=== PATIENT | female | born 1955 | race Hispanic/Latino ===

== ENCOUNTER 2019-10-18 17:55 | Emergency (ER) | payer OTHER, BC ==
--- NOTE | 2019-10-23 14:44 | ER ---
Nurse's Notes [facility] – [place], [place] Name: Marainela Coles Age: 64 yrs Sex: Female : 1955 Arrival Date: 10/18/2019 Time: 18:02 Bed 14 Private MD: Diagnosis: Mayen's palsy Presentation: 10/17 18:25 Chief complaint: Patient states: Left eye irritation, not closing well since last ll1 night. Left upper lip feels numb and not moving well today. No neuro deficits. Gait steady. Grasps equal. Coronavirus screen: Proceed with normal triage. Patient denies a cough. Patient denies shortness of breath or difficulty breathing. Patient denies measured and/or subjective temperature greater than 100.4F prior to today's visit. Patient denies travel on a cruise ship or to a country the [facility] currently lists as an affected area. Patient denies contact with known and/or suspected case of COVID-19. Ebola Screen: Patient denies travel to an Ebola-affected area in the 21 days before illness onset. Initial Sepsis Screen: Does the patient meet any 2 criteria? No. Patient's initial sepsis screen is negative. Does the patient have a suspected source of infection? No. Patient's initial sepsis screen is negative. Risk Assessment: Do you want to hurt yourself or someone else? Patient reports no desire to harm self or others. Onset of symptoms was October 17, 2019. 18:25 Method Of Arrival: Ambulatory ll1 18:25 Acuity: SIENNA 4 ll1 Triage Assessment: 19:45 General: Appears in no apparent distress. uncomfortable, Behavior is calm, cooperative, vc appropriate for age. Pain: Denies pain. Historical: - Allergies: 18:28 PENICILLINS; ll1 18:28 Codeine; ll1 - PMHx: 18:28 Diabetes - NIDDM; Hypertension; ll1 - PSHx: 18:28 None; ll1 - Immunization history:: Flu vaccine is up to date. - Social history:: Patient/guardian denies using alcohol, street drugs, tobacco products, Patient/guardian denies using The patient lives with family, Smoking status: Patient denies any tobacco usage or history of. - Family history:: not pertinent. Screenin:45 Abuse screen: Denies threats or abuse. Nutritional screening: No deficits noted. vc Tuberculosis screening: No symptoms or risk factors identified. Fall Risk None identified. Assessment: 19:45 General: Appears in no apparent distress. uncomfortable, Behavior is calm, cooperative, vc appropriate for age. Pain: Denies pain. Neuro: Level of Consciousness is awake, alert, obeys commands, Oriented to person, place, time, situation, Appropriate for age Medical Staff Services Coordinator are equal bilaterally Moves all extremities. Facial droop on left, Reports numbness in mouth. Cardiovascular: Capillary refill < 3 seconds Patient's skin is warm and dry. Respiratory: Airway is patent Respiratory effort is even, unlabored, Respiratory pattern is regular, symmetrical. GI: No signs and/or symptoms were reported involving the gastrointestinal system. : No signs and/or symptoms were reported regarding the genitourinary system. EENT: right eye droop. Derm: Skin is intact, is healthy with good turgor. Vital Signs: 18:25 BP 174 / 78; Pulse 83; Resp 17; Temp 98.4; Pulse Ox 99% ; Weight 58.51 kg; Height 5 ft. ll1 2 in. (157.48 cm); Pain 0/10; 18:25 Body Mass Index 23.59 (58.51 kg, 157.48 cm) ll1 ED Course: 18:02 Patient arrived in ED. mr 18:27 Triage completed. ll1 18:28 Arm band placed on Patient notified of wait time. ll1 19:45 Patient has correct armband on for positive identification. Bed in low position. vc 20:04 Patsy Elena MD is Attending Physician. ma2 20:15 No provider procedures requiring assistance completed. Patient did not have IV access vc during this emergency room visit. 20:18 Shayna Lewis, LEANA is Primary Nurse. vc Administered Medications: No medications were administered Outcome: 20:08 Discharge ordered by . ma2 20:15 Discharged to home ambulatory. vc 20:15 Condition: good 20:15 Discharge instructions given to patient, Instructed on discharge instructions, follow up and referral plans. medication usage, Demonstrated understanding of instructions, follow-up care, medications, Prescriptions given X 3. 20:19 Patient left the ED. vc Signatures: Kae Driscoll mr Patsy Elena MD MD ma2 Shayna Lewis RN RN vc Brent, Lynsay, RN RN ll1
--- NOTE | 2019-10-23 14:44 | EDPHYS ---
Physician Documentation [facility] Name: Marianela Coles Age: 64 yrs Sex: Female : 1955 Arrival Date: 10/18/2019 Time: 18:02 Bed 14 Private MD: ED Physician Patsy Elena HPI: 10/17 20:04 This 64 yrs old Female presents to ER via Ambulatory with complaints of Eye ma2 Problem, Numbness Of Lips. 20:04 Onset: The symptoms/episode began/occurred gradually, 1 hour(s) ago. Associated signs ma2 and symptoms: Pertinent negatives: chills, dizziness, headache. Severity of symptoms: At their worst the symptoms were very mild in the emergency department the symptoms are unchanged. The patient has not experienced similar symptoms in the past. left sided facial palsy. Historical: - Allergies: 18:28 PENICILLINS; ll1 18:28 Codeine; ll1 - PMHx: 18:28 Diabetes - NIDDM; Hypertension; ll1 - PSHx: 18:28 None; ll1 - Immunization history:: Flu vaccine is up to date. - Social history:: Patient/guardian denies using alcohol, street drugs, tobacco products, Patient/guardian denies using The patient lives with family, Smoking status: Patient denies any tobacco usage or history of. - Family history:: not pertinent. ROS: 20:04 Constitutional: Negative for fever, chills, and weight loss. ma2 20:04 All other systems are negative. Exam: 20:04 Visual Acuity: Visual acuity is within normal limits. ma2 20:04 Constitutional: This is a well developed, well nourished patient who is awake, alert, and in no acute distress. Head/Face: left sided facial weakness, lower motor neuron, uncluding forehead, Normocephalic, atraumatic. Eyes: Pupils equal round and reactive to light, extra-ocular motions intact. Lids and lashes normal. Conjunctiva and sclera are non-icteric and not injected. Cornea within normal limits. Periorbital areas with no swelling, redness, or edema. ENT: Nares patent. No nasal discharge, no septal abnormalities noted. Tympanic membranes are normal and external auditory canals are clear. Oropharynx with no redness, swelling, or masses, exudates, or evidence of obstruction, uvula midline. Mucous membranes moist. Neck: Trachea midline, no thyromegaly or masses palpated, and no cervical lymphadenopathy. Supple, full range of motion without nuchal rigidity, or vertebral point tenderness. No Meningismus. Chest/axilla: Normal chest wall appearance and motion. Nontender with no deformity. No lesions are appreciated. Cardiovascular: Regular rate and rhythm with a normal S1 and S2. No gallops, murmurs, or rubs. Normal PMI, no JVD. No pulse deficits. Respiratory: Lungs have equal breath sounds bilaterally, clear to auscultation and percussion. No rales, rhonchi or wheezes noted. No increased work of breathing, no retractions or nasal flaring. Abdomen/GI: Soft, non-tender, with normal bowel sounds. No distension or tympany. No guarding or rebound. No evidence of tenderness throughout. Back: No spinal tenderness. No costovertebral tenderness. Full range of motion. Skin: Warm, dry with normal turgor. Normal color with no rashes, no lesions, and no evidence of cellulitis. MS/ Extremity: Pulses equal, no cyanosis. Neurovascular intact. Full, normal range of motion. Neuro: Awake and alert, GCS 15, oriented to person, place, time, and situation. Cranial nerves II-XII grossly intact. Motor strength 5/5 in all extremities. Sensory grossly intact. Cerebellar exam normal. Normal gait. Vital Signs: 18:25 BP 174 / 78; Pulse 83; Resp 17; Temp 98.4; Pulse Ox 99% ; Weight 58.51 kg; Height 5 ft. ll1 2 in. (157.48 cm); Pain 0/10; 18:25 Body Mass Index 23.59 (58.51 kg, 157.48 cm) ll1 MDM: 20:04 Patient medically screened. ma2 20:04 Differential diagnosis: Acute iritis of bells palsy. Data reviewed: vital signs, nurses ma2 notes. Counseling: I had a detailed discussion with the patient and/or guardian regarding: the historical points, exam findings, and any diagnostic results supporting the discharge/admit diagnosis, the presence of at least one elevated blood pressure reading (>120/80) during this emergency department visit, the need for outpatient follow up. Response to treatment: There is no appreciated change of the patient's symptoms at this time. Administered Medications: No medications were administered Disposition: 10/18/19 20:08 Discharged to Home. Impression: Mayen's palsy. - Condition is Stable. - Discharge Instructions: Mayen Palsy, Adult. - Prescriptions for Tears Naturale Forte - take 2 drop by OTIC route 6 times per day for 10 days; 2 box. Acyclovir 400 mg Oral Tablet - take 1 tablet by ORAL route every 8 hours; 30 tablet. Medrol (Tiago) 4 mg Oral Tablets, Dose Pack - take 1 tablet by ORAL route as directed - follow package instructions; 1 packet. - Medication Reconciliation Form, Thank You Letter, Antibiotic Education, Prescription Opioid Use form. - Follow up: Private Physician; When: Tomorrow; Reason: If symptoms return, Continuance of care. Signatures: Patsy Elena MD MD ma2 Shayna Lewis RN RN Samira Guzman RN RN ll1 Corrections: (The following items were deleted from the chart) 20:19 20:08 10/18/2019 20:08 Discharged to Home. Impression: Mayen's palsy. Condition is vc Stable. Forms are Medication Reconciliation Form, Thank You Letter, Antibiotic Education, Prescription Opioid Use. Follow up: Private Physician; When: Tomorrow; Reason: If symptoms return, Continuance of care. [email or web address]
== END 2019-10-18 20:19 | disposition home or self-care (01) ==
LOC: ER 17:55
DX: G51.0 Bell's palsy (principal); I10 Essential (primary) hypertension; Z88.0 Allergy status to penicillin; Z88.5 Allergy status to narcotic agent
CPT/HCPCS: 99282

== ENCOUNTER 2025-02-19 07:52 | Inpatient (IN) | payer OTHER, BC ==
[2025-02-19] MEDS ORDERED: NA CHLORIDE 0.9% 500 ML ONE (08:12)
[2025-02-19 08:29] LABS: Absolute Lymphocytes (CBC) 1.7 K/uL (0.7-4.9); Hematocrit 30.1 % (36.0-45.0); Hemoglobin 9.8 g/dL (12.0-15.0); MCH 29.2 pg (27.0-35.0); MCHC 32.6 g/dL (32.0-36.0); MCV 89.4 fL (80-100); MPV 8.4 fL (7.6-11.3); Nucleated RBC Absolute Count 0.0 (0-0); Nucleated Red Blood Cells % 0.1 % (0-0); RBC Red Blood Cell Count 3.36 M/uL (3.86-4.86); White Blood Count 5.70 thou/uL (4.3-10.9)
[2025-02-19 08:36] LABS: PT Prothrombin Time 15.1 SECONDS (10-13.0); Protime INR 1.35
[2025-02-19 08:45] LABS: Sqamous Epithelial <5 /HPF (None Seen); Urine Culture Reflex Order NOT NEEDED; Urine Microscopic Reflex YN ORDER UMIC; Urine WBC Clump Rare /HPF (None Seen)
[2025-02-19 08:50] LABS: ALT/SGPT 29.0 U/L (13-56); AST/SGOT 28.0 U/L (15-37); Albumin 3.1 g/dL (3.4-5.0); Albumin/Globulin Ratio 0.8 (1.1-1.8); Alkaline Phosphatase 116.0 U/L (45-117); Anion Gap 8.5 mEq/L (5.0-15.0); BUN Blood Urea Nitrogen 33.0 mg/dL (7-18); Bilirubin Indirect, Calculated 0.3 mg/dL (0.2-0.8); Globulin 4.1 g/dL (2.3-3.5); Glucose Level 160.0 mg/dL (74-106); Lipase 85.0 U/L (13-75); Magnesium 1.7 mg/dL (1.6-2.4); NT PRO-BNP 47.0 pg/mL (<125); Potassium 4.5 mEq/L (3.5-5.1); Troponin High Sensitivity 8.2 pg/mL (<58.9)
[2025-02-19 09:10] LABS: White Blood Cell Scan OK (OK)
[2025-02-19 09:11] LABS: Blood Morphology Comment NOT SEEN (NOT SEEN)
--- NOTE | 2025-02-19 09:27 | RAD REPORT ---
EXAMINATION: Abdomen Pelvis Wo Contrast CLINICAL INDICATION: Female, 69 years old.ABD PAIN TECHNIQUE: CTA abdomen and pelvis was performed, before and after the administration of IV contrast, as per department protocol. MIPS were created. Axial, sagittal and coronal reconstructions were obtained. One or more of the following dose reduction techniques were used: Automated exposure contro l, adjustment of the mA and/or kV according to patient size, and/or iterative reconstruction. Unless otherwise specified, incidental findings do not require dedicated imaging follow-up. [id number]. COMPARISON: MRI 06/23/2024 FINDINGS: LOWER CHEST: No acute process identified.No significant pericardial effusion. Mitral annular calcific ations.Lower esophageal varices noted. UPPER GI: Probable gastric varices. LIVER: Nodular liver contour. Dilated portal vein. GALLBLADDER/BILE DUCTS: Cholelithiasis without CT evidence of acute cholecystitis.? PANCREAS: No mass, ductal dilation, or rashid-pancreatic fluid. SPLEEN: Unremarkable. ADRENALS: No adrenal masses. KIDNEYS AND URETERS: No hydronephrosis.10 mm right upper pole renal lesion demonstrates enhancement a nd is suspicious for a solid neoplasm.No renal calculi.Renal cysts also present. ABDOMINAL AORTA AND OTHER VESSELS: Moderate atherosclerotic changes without aortic aneurysm. PERITONEUM: No abnormal free fluid. No free air. LYMPH NODES: No pathologic lymphadenopathy. ABDOMINAL WALL: Unremarkable SMALL BOWEL/COLON: Small bowel has normal course and caliber. No colonic wall thickening or pericolon ic inflammatory changes.Normal appendix. URINARY BLADDER: Underdistended but grossly unremarkable. REPRODUCTIVE ORGANS: No pathologic process. MUSCULOSKELETAL: Remote appearing superior endplate deformities at L3 and L4. ADDITIONAL FINDINGS: None. IMPRESSION: No evidence of active gastrointestinal bleeding. Cirrhotic liver morphology with esophageal and gastr ic varices. Enhancing 10 mm right upper pole renal lesion remains suspicious for neoplasm. This is not significan tly changed in size since 06/23/2024.
--- NOTE | 2025-02-19 09:44 | ER ---
Nurse's Notes [facility] Name: Marianela Coles Age: 69 yrs Sex: Female : 1955 Arrival Date: 02/19/2025 Time: 07:52 Bed 8 Private MD: Diagnosis: Upper GI bleed, esophageal variceal bleed, abdominal pain, liver cirrhosis Presentation: 02/19 08:15 Chief complaint: Patient states: N/V started this morning, vomiting bright, also had af3 dark stools this morning. 08:15 Coronavirus screen: At this time, the client does not indicate any symptoms associated af3 with coronavirus-19. Ebola Screen: No symptoms or risks identified at this time. Initial Sepsis Screen: Does the patient meet any 2 criteria? No. Patient's initial sepsis screen is negative. Does the patient have a suspected source of infection? No. Patient's initial sepsis screen is negative. Risk Assessment: Do you want to hurt yourself or someone else? Patient reports no desire to harm self or others. Onset of symptoms was February 19, 2025. 08:15 Method Of Arrival: Ambulatory af3 08:15 Acuity: SIENNA 3 af3 Triage Assessment: 08:23 General: Appears in no apparent distress. comfortable, well groomed, well developed, af3 Behavior is calm, cooperative, appropriate for age. Pain: Denies pain. Neuro: Level of Consciousness is awake, alert, obeys commands, Oriented to person, place, time, situation, Appropriate for age. Cardiovascular: Patient's skin is warm and dry. Respiratory: Airway is patent Respiratory effort is even, unlabored, Respiratory pattern is regular, symmetrical. GI: Reports nausea, vomiting. Historical: - Allergies: 08:23 Codeine; af3 08:23 PENICILLINS; af3 - PMHx: 08:23 Diabetes - NIDDM; Hypertension; af3 - Immunization history:: Adult Immunizations unknown. - Infectious Disease History:: Denies. - Social history:: Smoking status: Patient denies any tobacco usage or history of. Screenin:26 [facility] ED Fall Risk Assessment (Adult) History of falling in the last 3 months, af3 including since admission No falls in past 3 months (0 pts) Confusion or Disorientation No (0 pts) Intoxicated or Sedated No (0 pts) Impaired Gait No (0 pts) Mobility Assist Device Used No (0 pt) Altered Elimination No (0 pt) Score/Fall Risk Level 0 - 2 = Low Risk Oriented to surroundings, Maintained a safe environment, Educated pt \T\ family on fall prevention, incl call for assistance when getting out of bed. Abuse screen: Denies threats or abuse. Denies injuries from another. Nutritional screening: No deficits noted. Tuberculosis screening: No symptoms or risk factors identified. Assessment: 08:26 General: see triage assessment. af3 09:32 Reassessment: Patient appears in no apparent distress at this time. No changes from af3 previously documented assessment. Patient and/or family updated on plan of care and expected duration. Pain level reassessed. Patient is alert, oriented x 3, equal unlabored respirations, skin warm/dry/pink. 10:25 Reassessment: actively vomiting, dark color, physician notified . ap3 Vital Signs: 08:15 BP 134 / 61; Pulse 98; Resp 18; Temp 98; Pulse Ox 99% on R/A; Weight 58.97 kg; Height 5 af3 ft. 2 in. ; 08:59 BP 118 / 59; Pulse 87; Resp 17; Pulse Ox 100% on R/A; ap3 09:32 BP 119 / 50; Pulse 86; Resp 18; Pulse Ox 100% on R/A; af3 10:38 BP 121 / 46; Pulse 87; Resp 18; Pulse Ox 100% on R/A; af3 08:15 Body Mass Index 23.78 (58.97 kg, 157.48 cm) af3 ED Course: 07:56 Patient arrived in ED. cj3 07:57 Elias Myers MD is Attending Physician. sp3 08:12 Client placed on continuous cardiac and pulse oximetry monitoring. NIBP monitoring ap3 applied. developmental writing instructor on. Pulse ox on. NIBP on. 08:21 Lucretia Manriquez RN is Primary Nurse. af3 08:23 Triage completed. af3 08:23 Arm band placed on. af3 08:26 Patient has correct armband on for positive identification. Bed in low position. Call af3 light in reach. Provided Education on: call light use . 08:26 No provider procedures requiring assistance completed. Inserted saline lock: 20 gauge af3 in right antecubital area, using aseptic technique. Blood collected. Flushed with 10 mL NS. 08:32 EKG done, by ED staff, reviewed by Elias Myers MD. ap3 08:45 Abdomen Angio In Process Unspecified. EDMS 08:45 Pelvis Angio In Process Unspecified. EDMS 08:45 Abdomen In Process Unspecified. EDMS 09:00 Inserted saline lock: 20 gauge in left antecubital area, using aseptic technique. af3 Flushed with 10 mL NS. 09:43 Lawrence Winter MD is Hospitalizing Provider. sp3 11:40 Patient admitted, IV remains in place. ss Administered Medications: 08:34 Drug: NS 0.9% IV 500 ml IV at bolus once; to be given as a bolus over 30 minutes Route: af3 IV; Rate: bolus; Site: right antecubital; 09:45 Follow up: Response: No adverse reaction; IV Status: Completed infusion; IV Intake: af3 500ml 10:23 Drug: Rocephin IV 1 grams IV at calculated rate once; Given slow IV push per pharmacy af3 instructions Route: IV; Rate: calculated rate; Site: right antecubital; 10:24 Drug: Pantoprazole IVP 80 mg IVP once Route: IVP; Site: right antecubital; af3 10:24 Drug: Octreotide IV 50 mcg IV at bolus once Route: IV; Rate: bolus; Site: left af3 antecubital; 10:36 Drug: Ondansetron IVP 4 mg IVP once; over 2 minutes Route: IVP; Site: left antecubital; ap3 Medication: 08:26 VIS not applicable for this client. af3 Intake: 09:45 IV: 500ml; Total: 500ml. af3 Outcome: 09:44 Decision to Hospitalize by Provider. sp3 11:40 Admitted to Tele accompanied by tech, via wheelchair, room 413, 11:40 Condition: good 11:40 Instructed on the need for admit, Demonstrated understanding of instructions, 11:41 Patient left the ED. ss Signatures: Dispatcher [employer] EDLuisa Mooney RN RN ss Prokisch, Amanda, RN RN [email or web address] Elias Myers MD MD sp3 Lucretia Manriquez RN RN af3 Staci Del Rosario cj3 Corrections: (The following items were deleted from the chart) 09:03 08:59 BP 116 / 36; Pulse 87bpm; Resp 17bpm; Pulse Ox 100% RA; ap3 ap3
--- NOTE | 2025-02-19 09:44 | EDPHYS ---
Physician Documentation [facility] Name: Marianela Coles Age: 69 yrs Sex: Female : 1955 Arrival Date: 02/19/2025 Time: 07:52 Bed 8 Private MD: ED Physician Elias Myers HPI: 02/19 08:18 This 69 yrs old Female presents to ER via Unassigned with complaints of sp3 Nausea, Vomiting - BLOOD. 08:19 69-year-old female with history of liver cirrhosis from prior alcoholism, significant sp3 GI bleed in November 2024 requiring transfer, hypertension presents to the ED with chief complaint vomiting blood this morning and dark stools over the last several days. Patient 1 episode of emesis this morning to which she said she had bright red blood mixed in. She is not on any antiplatelet agents or anticoagulants. She denies ongoing vomiting. She also denies headache, neck pain, chest pain, shortness of breath, abdominal pain, syncope, bleeding elsewhere, or any other signs or symptoms on ROS at this time. Her last alcoholic beverage was in November of this year.. Historical: - Allergies: 08:23 Codeine; af3 08:23 PENICILLINS; af3 - PMHx: 08:23 Diabetes - NIDDM; Hypertension; af3 - Immunization history:: Adult Immunizations unknown. - Infectious Disease History:: Denies. - Social history:: Smoking status: Patient denies any tobacco usage or history of. ROS: 08:20 Constitutional: Negative for fever, chills, and weight loss, Eyes: Negative for injury, sp3 pain, redness, and discharge, Neck: Negative for injury, pain, and swelling, Cardiovascular: Negative for chest pain, palpitations, and edema, Respiratory: Negative for shortness of breath, cough, wheezing, and pleuritic chest pain, Back: Negative for injury and pain, MS/Extremity: Negative for injury and deformity, Skin: Negative for injury, rash, and discoloration, Neuro: Negative for headache, weakness, numbness, tingling, and seizure, Psych: Negative for depression, anxiety, suicide ideation, homicidal ideation, and hallucinations, Allergy/Immunology: Negative for hives, rash, and allergies, Endocrine: Negative for neck swelling, polydipsia, polyuria, polyphagia, and marked weight changes, 08:20 All other systems are negative, Exam: 08:20 Constitutional: This is a well developed, well nourished patient who is awake, alert, sp3 and in no acute distress. Head/Face: Normocephalic, atraumatic. Eyes: Pupils equal round and reactive to light, extra-ocular motions intact. Lids and lashes normal. Conjunctiva and sclera are non-icteric and not injected. Cornea within normal limits. Periorbital areas with no swelling, redness, or edema. Neck: Trachea midline, no thyromegaly or masses palpated, and no cervical lymphadenopathy. Supple, full range of motion without nuchal rigidity, or vertebral point tenderness. No Meningismus. Chest/axilla: Normal chest wall appearance and motion. Nontender with no deformity. No lesions are appreciated. Cardiovascular: Regular rate and rhythm with a normal S1 and S2. No gallops, murmurs, or rubs. Normal PMI, no JVD. No pulse deficits. Respiratory: Lungs have equal breath sounds bilaterally, clear to auscultation and percussion. No rales, rhonchi or wheezes noted. No increased work of breathing, no retractions or nasal flaring. Abdomen/GI: Soft, non-tender, with normal bowel sounds. No distension or tympany. No guarding or rebound. No evidence of tenderness throughout. Back: No spinal tenderness. No costovertebral tenderness. Full range of motion. Skin: Warm, dry with normal turgor. Normal color with no rashes, no lesions, and no evidence of cellulitis. MS/ Extremity: Pulses equal, no cyanosis. Neurovascular intact. Full, normal range of motion. Neuro: Awake and alert, GCS 15, oriented to person, place, time, and situation. Cranial nerves II-XII grossly intact. Motor strength 5/5 in all extremities. Sensory grossly intact. Cerebellar exam normal. Normal gait. Psych: Awake, alert, with orientation to person, place and time. Behavior, mood, and affect are within normal limits. 08:32 ECG was reviewed by the Attending Physician. EKG demonstrates normal sinus rhythm at 90 sp3 bpm with normal intervals, normal QRS, normal axis, normal ST/T-segment's with isolated lead T wave peaking in V2 however no other leads noted. Vital Signs: 08:15 BP 134 / 61; Pulse 98; Resp 18; Temp 98; Pulse Ox 99% on R/A; Weight 58.97 kg; Height 5 af3 ft. 2 in. ; 08:59 BP 118 / 59; Pulse 87; Resp 17; Pulse Ox 100% on R/A; ap3 09:32 BP 119 / 50; Pulse 86; Resp 18; Pulse Ox 100% on R/A; af3 10:38 BP 121 / 46; Pulse 87; Resp 18; Pulse Ox 100% on R/A; af3 08:15 Body Mass Index 23.78 (58.97 kg, 157.48 cm) af3 MDM: 08:03 Medical Screening Exam initiated sp3 08:21 Data reviewed: vital signs, nurses notes, old medical records, lab test result(s), EKG, sp3 radiologic studies. ED course: 69-year-old female with history of GI bleed now with recurrent bloody vomiting and melena. Differential diagnosis includes recurrent GI bleed, anemia of other etiology, dehydration, electrolyte abnormality, liver failure, among others. Workup will include general labs including coagulation profile, lactate, type and screen, hepatic profile, CT scan of the abdomen pelvis with IV contrast and treatment will be with IV fluids initially while workup is pending. Further interventions as indicated.. 09:33 ED course: Patient with variceal sequela on CT. Hemoglobin 9.8. Will go ahead and start sp3 Protonix and octreotide in the event this is a variceal bleed. GI paged for consultation for disposition assistance.. 02/19 08:10 Order name: Basic Metabolic Panel; Complete Time: sp3 02/19 08:10 Order name: CBC with Diff; Complete Time: sp3 02/19 08:10 Order name: LFT's; Complete Time: sp3 02/19 08:10 Order name: Magnesium; Complete Time: sp3 02/19 08:10 Order name: NT PRO-BNP; Complete Time: sp3 02/19 08:10 Order name: PT-INR; Complete Time: sp3 02/19 08:10 Order name: Troponin HS; Complete Time: sp3 02/19 08:10 Order name: Lipase; Complete Time: sp3 02/19 08:10 Order name: UA Rfx Reji Cult if indicated; Complete Time: 09:26 sp3 02/19 08:10 Order name: Type And Screen; Complete Time: 09: sp3 02/19 08:10 Order name: Lactate w/ 2H reflex if indic.; Complete Time: 09: sp3 02/19 08:34 Order name: CBC Smear Scan; Complete Time: 09:26 EDMS 02/19 10:33 Order name: Basic Metabolic Panel EDMS 02/19 10:33 Order name: Basic Metabolic Panel EDMS 02/19 10:33 Order name: Basic Metabolic Panel EDMS 02/19 10:33 Order name: CBC with Automated Diff EDMS 02/19 10:33 Order name: CBC with Automated Diff EDMS 02/19 10:33 Order name: CBC with Automated Diff EDMS 02/19 10:33 Order name: CBC with Automated Diff EDMS 02/19 10:33 Order name: CBC with Automated Diff EDMS 02/19 10:33 Order name: CBC with Automated Diff EDMS 02/19 10:33 Order name: CBC with Automated Diff EDMS 02/19 10:33 Order name: Magnesium EDMS 02/19 10:33 Order name: Magnesium EDMS 02/19 08:27 Order name: Abdomen Angio; Complete Time: 09:31 EDMS 02/19 08:27 Order name: Pelvis Angio; Complete Time: 09: EDMS 02/19 08:28 Order name: Abdomen ; Complete Time: 09: EDMS 02/19 10:29 Order name: CONS Physician Consult EDMS 02/19 08:10 Order name: Cardiac monitoring; Complete Time: 08:12 sp3 02/19 08:10 Order name: EKG - Nurse/Tech; Complete Time: 08:32 sp3 02/19 08:10 Order name: IV Saline Lock; Complete Time: 08:40 sp3 02/19 08:10 Order name: Labs collected and sent; Complete Time: 08:40 sp3 02/19 08:10 Order name: O2 Per Protocol; Complete Time: 08:12 sp3 02/19 08:10 Order name: O2 Sat Monitoring; Complete Time: 08:12 sp3 Administered Medications: 08:34 Drug: NS 0.9% IV 500 ml IV at bolus once; to be given as a bolus over 30 minutes Route: af3 IV; Rate: bolus; Site: right antecubital; 09:45 Follow up: Response: No adverse reaction; IV Status: Completed infusion; IV Intake: af3 500ml 10:23 Drug: Rocephin IV 1 grams IV at calculated rate once; Given slow IV push per pharmacy af3 instructions Route: IV; Rate: calculated rate; Site: right antecubital; 10:24 Drug: Pantoprazole IVP 80 mg IVP once Route: IVP; Site: right antecubital; af3 10:24 Drug: Octreotide IV 50 mcg IV at bolus once Route: IV; Rate: bolus; Site: left af3 antecubital; 10:36 Drug: Ondansetron IVP 4 mg IVP once; over 2 minutes Route: IVP; Site: left antecubital; ap3 Disposition Summary: 02/19/25 09:44 Hospitalization Ordered Notes: Hospitalization Status: Inpatient Admission sp3 Provider: Lawrence Winter Location: Telemetry/[facility] (Inpatient) sp3 Condition: Stable sp3 Problem: an acute exacerbation sp3 Symptoms: have worsened sp3 Bed/Room Type: Standard sp3 Room Assignment: 413(02/19/25 10:31) bd Diagnosis - Upper GI bleed, esophageal variceal bleed, abdominal pain, liver cirrhosis sp3 Forms: - Medication Reconciliation Form sp3 - SBAR form sp3 - Leadership Thank You Letter sp3 Critical care time excluding procedures: 09:34 Critical care time: Bedside Care: 15 minutes, Consultation: 10 minutes, Family sp3 Intervention: 10 minutes. Total time: 35 minutes Signatures: Dispatcher [employer] EDMS Lupis Mcgrath Amanda, RN RN ap3 Elias Myers MD MD sp3 Lucretia Manriquez RN RN af3 Corrections: (The following items were deleted from the chart) 08:11 08:11 BASIC METABOLIC PANEL+C.LAB.BRZ ordered. EDMS EDMS 08:11 08:11 CBC+H.LAB.BRZ ordered. EDMS EDMS 08:11 08:11 HEPATIC FUNCTION+C.LAB.BRZ ordered. EDMS EDMS 08:11 08:11 MAGNESIUM+C.LAB.BRZ ordered. EDMS EDMS 08:11 08:11 PROBNP+C.LAB.BRZ ordered. EDMS EDMS 08:11 08:11 PROTIME (+INR)+COAG.LAB.BRZ ordered. EDMS EDMS 08: 08:11 Troponin High Sensitivity+C.LAB.BRZ ordered. EDMS EDMS 08:11 08:11 LIPASE+C.LAB.BRZ ordered. EDMS EDMS 08: 08:11 UA Rfx Reji Cult if indicated+U.LAB.BRZ ordered. EDMS EDMS 08: 08:11 TYPE AND SCREEN+BB.LAB.BRZ ordered. EDMS EDMS 08: 08:11 LACTATE+C.LAB.BRZ ordered. EDMS EDMS 08:11 08:11 Abdomen Pelvis W Con+CT.RAD.BRZ ordered. EDMS EDMS 10:31 09:44 sp3 bd
[2025-02-19] MEDS ORDERED: CEFTRIAXONE 1000 MG/VIAL ONE (09:56)
[2025-02-19] MEDS ORDERED: OCTREOTIDE ACETATE 100 MCG/ML ONE (09:56)
[2025-02-19] MEDS ORDERED: PANTOPRAZOLE 40 MG INJ ONE (09:56)
[2025-02-19] MEDS ORDERED: NA CHLORIDE 0.9% 50 ML ONE (09:57)
[2025-02-19] MEDS ORDERED: ONDANSETRON 4 MG/2 ML VIAL IV PRN (10:27)
[2025-02-19] MEDS: PANTOPRAZOLE 40 MG INJ IVP ONE (10:30)
--- NOTE | 2025-02-19 10:39 | P.HP ---
Certification for Inpatient Patient admitted to: Inpatient With expected LOS: >2 Midnights Patient will require the following post-hospital care: None Practitioner: I am a practitioner with admitting privileges, knowledge of patient current condition, hospital course, and medical plan of care. Services: Services provided to patient in accordance with Admission requirements found in Title 42 Section 412.3 of the Code of Federal Regulations Patient History Date of Service: 02/19/25 Reason for admission: Upper GI bleeding History of Present Illness: 69-year-old female with history of alcoholic liver cirrhosis, previous GIB 11/2024 requiring transfer, hypertension presents to the ED with complaints of nausea, hematemesis x 1 small episode since this morning and dark stools over the last several days. Denies antiplatelet or anticoagulant usage. Denies headache, neck pain, chest pain, shortness of breath, abdominal pain, syncope, known active bleeding. Last drink November 2024. ER course: On patient arrival in ED vital signs were taken and were within normal limits on room air. Laboratory workup was completed notable for hemoglobin of 9.8 and hematocrit of 30.1, similar to last admission. Additionally, platelets 90, PT 115.1, INR 1.35, creatinine 0.7, lactate 1.5, lipase 85. Physical exam nontender abdomen and imaging negative for pancreatitis. CT abdomen pelvis completed showing esophageal varices not currently bleeding and no other concerns for active bleeding. Patient was started on octreotide drip, pantoprazole drip, NS 500 mL liter bolus and given one-time dose of ceftriaxone in ED. Other imaging with similar results as already noted abdomen and pelvis angio. Allergies Penicillins Allergy (Verified 02/19/25 10:25) codeine Adverse Reaction (Verified 02/19/25 10:25) Home medications list reviewed: Yes Home Medications: Carvedilol [Coreg] 3.125 mg PO BID 02/19/25 Losartan Potassium 1 tab PO DAILY 02/19/25 Metformin HCl 1 tab PO BID 02/19/25 glipiZIDE [Glipizide ER] 1 tab PO DAILY 02/19/25 - Past Medical/Surgical History Has patient received pneumonia vaccine in the past: No Diabetic: Yes -: Alcoholic liver cirrhosis -: Diabetes melitis 2 -: Hypertension Past Surgical History: Patient denies surgical history - Family History Family History: Reviewed- Non-Contributory - Social History Smoking Status: Never smoker Alcohol use: No CD- Drugs: No Caffeine use: Yes Place of Residence: Home (Last drink November 2024) Review of Systems 10-point ROS is otherwise unremarkable Physical Examination - Physical Exam General: Alert, In no apparent distress, Oriented x3, Cooperative HEENT: Atraumatic, Normocephalic, Mucous membr. moist/pink, Sclerae nonicteric Neck: Supple, 2+ carotid pulse no bruit, JVD not distended, No Thyromegaly Respiratory: Clear to auscultation bilaterally, Normal air movement Cardiovascular: No edema, Normal pulses, Regular rate/rhythm, Normal S1 S2 Capillary refill: Brisk Gastrointestinal: Normal bowel sounds, Soft and benign, Non-distended, W/out hepatosplenomegaly, No ascites, No tenderness, No masses Musculoskeletal: No clubbing, No swelling, No contractures, No erythema Integumentary: No rashes, No breakdown, No significant lesion, No tenderness/swelling Neurological: Normal speech, Normal strength at 5/5 x4 extr, Normal tone, Sensation intact, Cranial nerves 3-12 intact, Normal affect External genitalia: Deferred Rectal: Deferred - Studies Laboratory Data (last 24 hrs) 02/19/25 02/19/25 02/19/25 08:16 08:16 08:16 WBC 5.70 Hgb 9.8 L Hct 30.1 L Plt Count 90 L PT 15.1 H INR 1.35 Sodium 140 Potassium 4.5 BUN 33 H Creatinine 0.70 Glucose 160 H Magnesium 1.7 Total Bilirubin 0.5 AST 28 ALT 29 Alkaline Phosphatase 116 Lipase 85 H Assessment and Plan - Plan Assessment: 69-year-old female with history of alcoholic liver cirrhosis, previous GIB 11/2024 requiring transfer, hypertension presents to the ED with complaints of nausea, hematemesis x 1 small episode since this morning and dark stools over the last several days. Denies antiplatelet or anticoagulant usage. Denies headache, neck pain, chest pain, shortness of breath, abdominal pain, syncope, known active bleeding. Last drink November 2024. Dr. Dickens consulted and pending eval. Plan: Upper GI bleeding: Hematemesis Alcoholic liver cirrhosis -Hemodynamically stable at this time. -Hemoglobin level: 9.8 -2 large-bore IV cannulas at all times. -EKG ordered, no acute ischemic changes at this time. -Continuous telemetry. -Continuous pulse oximetry, provide oxygenation to keep O2 saturation above 94%. -CBC every 8 hours. -Received 500 mL liter normal saline IV bolus on admission. -Continue NS IV hydration at a rate of 100 mill per hour. - Continue Protonix drip initiated in ED -Continue octreotide drip initiated in ED -Continue ceftriaxone 1 g daily initiated in ED -Will need to transfuse packed RBCs if showing signs of hemodynamic ins tability/chest pain/respiratory distress, otherwise will transfuse if hemoglobin <7 Chronic Normocytic Anemia: In setting of UGIB as noted above -Hb: 9.8 , was 9.5 on last admission 11/2024. -1 episode of hematemesis -Imaging negative for current active bleeding -Ordered CBC for tomorrow every 8 hours -Will continue to trend. -Transfuse if symptomatic or <7. Hypertension Continue home meds when med rec complete Home regimen per patient Coreg 3.125 mg twice daily, losartan 50 mg daily [id number] diabetes mellitus 2 Home regimen metformin 500 mg twice daily, glipizide 5 mg ER daily held during admission Sliding scale insulin Accu-Cheks every 6 hours while NPO, then ACHS once p.o. intake resumes - Advance Directives Does patient have a Living Will: No Does patient have a Durable POA for Healthcare: No - Code Status/Comfort Care Code Status Assessed: Yes (DNI) Critical Care: No
[2025-02-19] MEDS ORDERED: OCTREOTIDE 500 MCG in NA CHLORIDE 0.9% 500 ML IV SCH (11:00)
[2025-02-19] MEDS: PANTOPRAZOLE INJ 80 MG in NA CHLORIDE 0.9% 250 ML IVP SCH (11:00)
[2025-02-19] MEDS: OCTREOTIDE 500 MCG in NA CHLORIDE 0.9% 500 ML IV SCH (11:00)
[2025-02-19] MEDS ORDERED: PANTOPRAZOLE INJ 80 MG in NA CHLORIDE 0.9% 250 ML IVP SCH (11:00)
[2025-02-19] MEDS: OCTREOTIDE ACETATE 100 MCG/ML IV ONE (11:00)
[2025-02-19] MEDS ORDERED: PANTOPRAZOLE 40 MG INJ IVP ONE (12:00)
[2025-02-19] MEDS ORDERED: OCTREOTIDE ACETATE 100 MCG/ML IV ONE (12:00)
[2025-02-19 12:30] LABS: Absolute Lymphocytes (CBC) 1.5 K/uL (0.7-4.9); Hematocrit 27.7 % (36.0-45.0); Hemoglobin 9.0 g/dL (12.0-15.0); MCH 29.1 pg (27.0-35.0); MCHC 32.4 g/dL (32.0-36.0); MCV 89.9 fL (80-100); MPV 8.6 fL (7.6-11.3); Nucleated RBC Absolute Count 0.0 (0-0); Nucleated Red Blood Cells % 0.0 % (0-0); RBC Red Blood Cell Count 3.09 M/uL (3.86-4.86); White Blood Count 5.10 thou/uL (4.3-10.9)
[2025-02-19] MEDS: NA CHLORIDE 0.9% 1,000 ML IV SCH (12:35)
[2025-02-19 12:58] VITALS: BMI 23.8
[2025-02-19] MEDS ORDERED: D10W 125 ML IV PRN (15:57)
[2025-02-19] MEDS: INSULIN REGULAR (HUMAN) 100 UNIT/ML SQ SCH (15:57)
[2025-02-19] MEDS ORDERED: GLUCAGON 1 MG/VIAL IM PRN (15:57)
[2025-02-19] MEDS ORDERED: D50W 25 GM/50 ML SYRINGE IV PRN (17:00)
[2025-02-19] MEDS: ACETAMINOPHEN 325 MG TABLET PO PRN (20:49)
[2025-02-19 21:06] LABS: Absolute Lymphocytes (CBC) 1.4 K/uL (0.7-4.9); Hematocrit 23.4 % (36.0-45.0); Hemoglobin 7.6 g/dL (12.0-15.0); MCH 29.1 pg (27.0-35.0); MCHC 32.4 g/dL (32.0-36.0); MCV 89.8 fL (80-100); MPV 8.5 fL (7.6-11.3); Nucleated RBC Absolute Count 0.0 (0-0); Nucleated Red Blood Cells % 0.2 % (0-0); RBC Red Blood Cell Count 2.60 M/uL (3.86-4.86); White Blood Count 3.20 thou/uL (4.3-10.9)
[2025-02-20 04:37] LABS: Absolute Lymphocytes (CBC) 1.1 K/uL (0.7-4.9); Hematocrit 23.3 % (36.0-45.0); Hemoglobin 7.6 g/dL (12.0-15.0); MCH 29.1 pg (27.0-35.0); MCHC 32.6 g/dL (32.0-36.0); MCV 89.1 fL (80-100); MPV 9.0 fL (7.6-11.3); Nucleated RBC Absolute Count 0.0 (0-0); Nucleated Red Blood Cells % 0.1 % (0-0); RBC Red Blood Cell Count 2.61 M/uL (3.86-4.86); White Blood Count 2.40 thou/uL (4.3-10.9)
[2025-02-20 04:45] LABS: Anion Gap 6.9 mEq/L (5.0-15.0); BUN Blood Urea Nitrogen 27.0 mg/dL (7-18); Glucose Level 127.0 mg/dL (74-106); Magnesium 1.5 mg/dL (1.6-2.4); Potassium 3.9 mEq/L (3.5-5.1)
[2025-02-20] MEDS: Magnesium Sulfate 2gm IVPB 2 G/50 ML BAG IV ONE (08:00)
[2025-02-20] MEDS ORDERED: SODIUM CHLORIDE 0.9% 10ML INJ IV PRN (08:53)
[2025-02-20] MEDS ORDERED: LOSARTAN POTASSIUM 50 MG TABLET PO SCH (09:00)
[2025-02-20] MEDS ORDERED: CEFTRIAXONE 1,000 MG in NA CHLORIDE 0.9% 50 ML IVPB SCH (09:00)
[2025-02-20] MEDS: PANTOPRAZOLE 40 MG INJ IVP SCH (09:30)
[2025-02-20 12:15] LABS: Absolute Lymphocytes (CBC) 1.1 K/uL (0.7-4.9); Hematocrit 24.6 % (36.0-45.0); Hemoglobin 8.0 g/dL (12.0-15.0); MCH 29.1 pg (27.0-35.0); MCHC 32.7 g/dL (32.0-36.0); MCV 89.0 fL (80-100); MPV 8.5 fL (7.6-11.3); Nucleated RBC Absolute Count 0.0 (0-0); Nucleated Red Blood Cells % 0.1 % (0-0); RBC Red Blood Cell Count 2.77 M/uL (3.86-4.86); White Blood Count 2.70 thou/uL (4.3-10.9)
--- NOTE | 2025-02-20 16:23 | P.PN ---
Subjective Date of Service: 02/20/25 Chief Complaint: Upper GI bleeding Patient reports 2 episodes of hematemesis since onset of symptoms. She denies any abdominal pain She is awake and alert. Hemoglobin dropped from 9 to 8. Physical Examination - Vital Signs Temperature: 97.8 F Blood Pressure: 137/55 Pulse: 71 Respirations: 18 Pulse Ox (%): 100 Assessment And Plan - Plan Physical examination General: Alert and oriented x3, NAD, HEENT: Conjunctiva not pale, anicteric sclera Neck: Supple, no elevated JVD Heart: Heart sounds 1 and 2 normal, regular rhythm, normal rate, no pedal edema Lungs: Clear to auscultation bilaterally, adequate breath sounds bilaterally, no rhonchi or crackles. Abdomen: Soft, nondistended, nontender, normal bowel sounds. Extremities: No tenderness, no deformity Skin: Normal skin turgor, no rash, no nodules or ulcers. Neuro: No focal motor deficit. Normal speech. Psychiatry: Normal mood, no agitation. Upper GI bleeding: Hematemesis Alcoholic liver cirrhosis History of esophagealvarices Acute blood loss anemia Hemodynamically stable. Monitor H&H Q8 hourly, transfuse as needed for hemoglobin less than 7. Continue octreotide drip IV Protonix GI consult, Dr. Kim is planning EGD. Hypertension Patient is currently normotensive. Continue to hold Coreg and Losartan Rrr-[id number]-[id number] diabetes mellitus 2 Continue to hold metformin and glipizide Sliding scale insulin Accu-Cheks every 6 hours while NPO, then ACHS once p.o. intake resumes. DVT prophylaxis: SCD CODE STATUS: Full code
[2025-02-20 20:53] LABS: Absolute Lymphocytes (CBC) 1.0 K/uL (0.7-4.9); Hematocrit 22.7 % (36.0-45.0); Hemoglobin 7.4 g/dL (12.0-15.0); MCH 29.0 pg (27.0-35.0); MCHC 32.5 g/dL (32.0-36.0); MCV 89.0 fL (80-100); MPV 8.7 fL (7.6-11.3); Nucleated RBC Absolute Count 0.0 (0-0); Nucleated Red Blood Cells % 0.0 % (0-0); RBC Red Blood Cell Count 2.55 M/uL (3.86-4.86); White Blood Count 2.60 thou/uL (4.3-10.9)
[2025-02-21 05:30] LABS: Absolute Lymphocytes (CBC) 0.9 K/uL (0.7-4.9); Hematocrit 23.7 % (36.0-45.0); Hemoglobin 7.9 g/dL (12.0-15.0); MCH 29.5 pg (27.0-35.0); MCHC 33.4 g/dL (32.0-36.0); MCV 88.3 fL (80-100); MPV 8.6 fL (7.6-11.3); Nucleated RBC Absolute Count 0.0 (0-0); Nucleated Red Blood Cells % 0.1 % (0-0); RBC Red Blood Cell Count 2.68 M/uL (3.86-4.86); White Blood Count 2.20 thou/uL (4.3-10.9)
[2025-02-21 05:45] LABS: Anion Gap 8.6 mEq/L (5.0-15.0); BUN Blood Urea Nitrogen 13.0 mg/dL (7-18); Glucose Level 116.0 mg/dL (74-106); Potassium 3.6 mEq/L (3.5-5.1)
[2025-02-21] MEDS ORDERED: KCL 20 MEQ/100 mL IVPB 20 MEQ/100 ML BAG IV SCH (09:00)
[2025-02-21] MEDS ORDERED: GLYCOPYRROLATE 0.2 MG/ML SYR ONE (09:07)
[2025-02-21] MEDS ORDERED: EPHEDRINE SULF 50 MG/ML VIAL ONE (09:07)
[2025-02-21] MEDS ORDERED: EPINEPHRINE 1 MG/ML VIAL ONE (09:27)
[2025-02-21] MEDS ORDERED: LIDOCAINE 1% MPF 30 ML VIAL ONE (09:47)
[2025-02-21] MEDS: POTASSIUM CL SA 10 MEQ TAB PO ONE (10:51)
--- NOTE | 2025-02-21 14:10 | CON ---
Date of Consultation: 02/21/2025 Reason For Consultation: Upper GI bleed with nausea, vomiting, hematemesis. History Of Present Illness: This patient is a 69-year-old female with history of diabetes, hypertension, alcoholic cirrhosis of the liver with esophageal varices. The patient presented to the hospital with hematemesis. The patient states that she was in the same situation in November 2024, came to [facility] and was transferred to tertiary center at that time, but there was n o esophageal or gastric varices, banding or therapy. They kept her on a beta-dacia, Coreg b.i.d., and discharged to home, it appears. The patient states her next hepatology appointment at [place] is not until June of 2025. The patient states that she was in her usual state of health until when she started having some nausea, vomiting, and then some hematemesis. Past Medical History: Significant for diabetes, hypertension, cirrhosis of liver secondary to alcoho l. The patient states she stopped all alcohol in November 2024 when she was diagnosed with alcoholic cir rhosis. Prior to that, she had heavy alcohol drinking. Medications: At home include Coreg 3.125 mg p.o. b.i.d., losartan, daily, metformin, glipizide. Allergies: TO CODEINE AND PENICILLIN. Social History: She is a , 3 children, 2 boys, 1 girl. She quit tobacco in 1979. She quit alc ohol in November of this year in 2024. Family History: Father of myocardial function in [place]. He went to go live with his son clau ayala. Mother of old age at age 89. She also had diabetes and multiple other chronic conditions. She reports that she does not recall right now what they all were, and she was in [place] with her other son. Review of Systems: The patient had nausea, vomiting, hematemesis, some left lower quadrant tenderness, she says it is of f and on for years, it appears, hematemesis but she denies any melena, hematochezia, epistaxis, hemop tysis, hematuria, dysuria, polyuria, polydipsia, chest pain, shortness of breath, seizure, syncope, m uscle aches, joint aches, backaches, depression, anxiety. Physical Examination: Vital Signs: The patient is 5 feet 2 inches, 130 pounds, BMI of 23.8 kg/sq m. Temperature 97.9 degr ees Fahrenheit, pulse 74, respirations 16, blood pressure 155/50, O2 saturation 100%. HEENT: Normocephalic, atraumatic. Pupils equal, round, and reactive to light. Extraocular movement s intact. Oropharynx is clear. She was slightly icteric and somewhat pale as well. Other than that , HEENT was clear. Neck: Supple. No masses. Respirations: Clear to auscultation on anterior exam only. Good airway movement Cardiac: Regular pulses. No gallops or rubs. Abdomen: Soft, nontender, nondistended. No hepatosplenomegaly detected. No peritoneal Loomis sign. No rebound. Extremities: No clubbing, cyanosis, or edema. 2+ pulses. Neuro: Alert and oriented x3. Grossly nonfocal. 5/5 motor strength. Sensation is intact to light touch. Laboratory Data: The patient has a white count of 3.2, hemoglobin of 7.9, hematocrit of 24, MCV of 8 8, platelet count low at 52. She had polys of 49%, lymphocytes 40%, monocytes 8%, and eosinophils 2% , absolute neutrophil count 1.1, low. PT of 15.1, INR of 1.35. She has a sodium of 142, potassium 3 .6, chloride 113, bicarb 24, BUN of 13, creatinine of 0.53, glucose 116, calcium 8.7, magnesium 2.1 o n last check yesterday. Prior bilirubin of 0.5, direct bilirubin 0.2, AST 28, ALT 29, alkaline phosp hatase 116. Troponin of 8.2, negative. B-type natriuretic peptide -47. Total protein 7.2, albumin 3.1, lipase 85. UA shows turbid urine. Serology negative. A CT scan abdomen and pelvis revealed es ophageal and gastric varices, gallstones in gallbladder, 1 cm lesion at the upper right pole of the [place] suspicious for neoplasm with enhancement with contrast infusion. Impression: 1. Hematemesis x2 after nausea, vomiting at home upon awakening Wednesday morning. She said she had 1 t simona at home. She had hematemesis 1 time in the emergency room. She has a history of upper GI bleed back in November of 2024, this year, just 2 months ago with transfer to tertiary center. There was no es ophageal banding or gastric varices therapy performed at tertiary center. She was placed on Coreg b. i.d. and sent home. CT of abdomen and pelvis reveals gastric and esophageal varices stated above wit h cholelithiasis and 1 cm lesion in the right upper pole of right kidney suspicious for neoplasm. We will need to investigate with EGD. 2. Cirrhosis, probably secondary to heavy alcohol use in the past, which she quit in November 2024 with d iagnosis of cirrhosis. 3. 1 cm right upper pole kidney lesion suspicious for neoplasm, need Urology followup. 4. History of diabetes, hypertension, cirrhosis of the liver, probably secondary to alcohol. Recommendation: 1. IV octreotide. 2. Continue IV ceftriaxone with suspicion of upper GI bleed with history of esophageal varices. 3. PPI therapy. 4. Note, transfusion unless hemoglobin dips below 7. Goal hemoglobin should be between 7 and 8. If it decreases that low, . Goal hemoglobin of 7-8. 5. Urgent EGD. 6. Continue outpatient Coreg b.i.d. 7. Urology consultation for a 1 cm right kidney innocent lesion at the upper pole of right kidney christel picious for neoplasm. BAN/ALLEN Voice ID: [id number] Report ID: [id number]
--- NOTE | 2025-02-21 18:31 | P.PN ---
Subjective Date of Service: 02/21/25 Chief Complaint: Upper GI bleeding Patient underwent EGD today and found to have grade 2 esophageal varices and gastritis. No reported hematemesis since yesterday. Physical Examination - Vital Signs Temperature: 97.8 F Blood Pressure: 137/55 Pulse: 71 Respirations: 18 Pulse Ox (%): 100 Assessment And Plan - Plan Physical examination General: Alert and oriented x3, NAD, HEENT: Conjunctiva not pale, anicteric sclera Neck: Supple, no elevated JVD Heart: Heart sounds 1 and 2 normal, regular rhythm, normal rate, no pedal edema Lungs: Clear to auscultation bilaterally, adequate breath sounds bilaterally, no rhonchi or crackles. Abdomen: Soft, nondistended, nontender, normal bowel sounds. Extremities: No tenderness, no deformity Skin: Normal skin turgor, no rash, no nodules or ulcers. Neuro: No focal motor deficit. Normal speech. Psychiatry: Normal mood, no agitation. Upper GI bleeding: Hematemesis Alcoholic liver cirrhosis Esophageal varices Gastritis Acute blood loss anemia Hemodynamically stable. Hemoglobin dropped to 7.9 Status post EGD today by Dr. Dickens and patient found to have bleeding gastritis and esophageal varix. Esophageal varices was banded. Monitor H&H Q8 hourly, transfuse as needed for hemoglobin less than 7. Continue IV Protonix She is on clear liquid diet for now. Diet advancement per GI . Hypertension Continue to hold Coreg and Losartan for now. Awy-mmectmn-swerlllou diabetes mellitus 2 Outpatient metformin and glipizide are on hold. Sliding scale insulin DVT prophylaxis: SCD CODE STATUS: Full code
[2025-02-22 07:31] LABS: Absolute Lymphocytes (CBC) 1.0 K/uL (0.7-4.9); Hematocrit 24.9 % (36.0-45.0); Hemoglobin 8.5 g/dL (12.0-15.0); MCH 29.8 pg (27.0-35.0); MCHC 34.3 g/dL (32.0-36.0); MCV 87.0 fL (80-100); MPV 8.3 fL (7.6-11.3); Nucleated RBC Absolute Count 0.0 (0-0); Nucleated Red Blood Cells % 0.3 % (0-0); RBC Red Blood Cell Count 2.86 M/uL (3.86-4.86); White Blood Count 2.70 thou/uL (4.3-10.9)
[2025-02-22 07:46] LABS: Anion Gap 7.7 mEq/L (5.0-15.0); BUN Blood Urea Nitrogen 8.0 mg/dL (7-18); Glucose Level 127.0 mg/dL (74-106); Potassium 3.7 mEq/L (3.5-5.1)
[2025-02-22 09:27] LABS: White Blood Cell Scan OK (OK)
[2025-02-22 09:30] LABS: Blood Morphology Comment NOT SEEN (NOT SEEN)
[2025-02-22 12:33] VITALS: BP 122/53; TEMP 98.1
[2025-02-22 13:54] VITALS: O2SAT 99
--- NOTE | 2025-02-22 15:00 | P.DS ---
Admission Date: 02/19/25 Discharge Date: 02/22/25 Disposition: ROUTINE DISCHARGE Discharge Condition: FAIR Reason for Admission: Upper GI bleeding Brief History of Present Illness: 69-year-old female with history of alcoholic liver cirrhosis, previous gastrointestinal bleed in November 2024 presented to the ED with complaints of nausea, 1 episode of hematemesis of 1 day duration, and dark stools over several days. Patient denied any history of alcohol abuse and she is not on any anticoagulation or antiplatelet. Patient was evaluated in the ED, lab was notable for hemoglobin of 9.8 and hematocrit of 30.1, platelets 90, PT 115.1, INR 1.35, creatinine 0.7, lactate 1.5, lipase 85. CT abdomen pelvis completed showed esophageal varices. Patient was started on octreotide drip, pantoprazole drip, NS 500 mL liter bolus and given one-time dose of ceftriaxone in ED and was admitted for further management. Hospital Course: Upper GI bleeding: Hematemesis Alcoholic liver cirrhosis Esophageal varices Gastritis Acute blood loss anemia Patient admitted to the medical floor, treated with octreotide drip and Protonix drip. She was hemodynamically stable but her hemoglobin count dropped to 7.9. She did not require blood transfusion She was seen by GI Dr. Dickens who performed EGD and noted bleeding gastritis and esophageal varices. According to Dr. Lamar esophageal varices were banded. Patient was monitored for another 24 hours after the EGD, hemoglobin remained stable, patient tolerated clear liquid diet. Patient discharged with IV Protonix and informed to follow-up with Dr. Dickens want to see her in about 3 weeks for repeat EGD and more esophageal varices banded. Patient voiced understanding. Hypertension Patient was normotensive during the hospital stay. Home antihypertensives held during the hospital stay and resumed on discharge [id number] diabetes mellitus 2 Outpatient metformin and glipizide held during the hospital stay, blood sugar managed with insulin sliding scale. Home dose metformin and glipizide resumed on discharge. Vital Signs/Physical Exam: Temp Pulse Resp BP Pulse Ox 98.1 F 85 16 122/53 L 99 02/22/25 12:00 02/22/25 12:00 02/22/25 12:00 02/22/25 12:00 02/22/25 12:00 General: Alert, In no apparent distress, Oriented x3 HEENT: Mucous membr. moist/pink Neck: Supple, JVD not distended Respiratory: Clear to auscultation bilaterally, Normal air movement Cardiovascular: No edema, Regular rate/rhythm, Normal S1 S2 Gastrointestinal: Normal bowel sounds, Soft and benign, Non-distended, No tenderness Musculoskeletal: No swelling Integumentary: No rashes, No cyanosis Neurological: Normal strength at 5/5 x4 extr Laboratory Data at Discharge: WBC 2.70 thou/uL (4.3-10.9) L 02/22/25 06:45 Hgb 8.5 g/dL (12.0-15.0) L 02/22/25 06:45 Hct 24.9 % (36.0-45.0) L 02/22/25 06:45 Plt Count 65 thou/uL (152-406) L 02/22/25 06:45 PT 15.1 SECONDS (10-13.0) H 02/19/25 08:16 INR 1.35 02/19/25 08:16 Sodium 140 mEq/L (136-145) 02/22/25 06:45 Potassium 3.7 mEq/L (3.5-5.1) 02/22/25 06:45 BUN 8 mg/dL (7-18) 02/22/25 06:45 Creatinine 0.64 mg/dL (0.55-1.02) 02/22/25 06:45 Glucose 127 mg/dL (74-106) H 02/22/25 06:45 Magnesium 2.1 02/20/25 15:19 Total Bilirubin 0.5 mg/dL (0.2-1.0) 02/19/25 08:16 AST 28 U/L (15-37) 02/19/25 08:16 ALT 29 U/L (13-56) 02/19/25 08:16 Alkaline Phosphatase 116 U/L (45-117) 02/19/25 08:16 Lipase 85 U/L (13-75) H 02/19/25 08:16 Home Medications: Carvedilol [Coreg] 3.125 mg PO BID 02/19/25 Losartan Potassium 1 tab PO DAILY 02/19/25 Metformin HCl 1 tab PO BID 02/19/25 glipiZIDE [Glipizide ER] 1 tab PO DAILY 02/19/25 Pantoprazole [Protonix Tab] 40 mg PO BID #60 tab 02/22/25 New Medications: Pantoprazole [Protonix Tab] 40 mg PO BID #60 tab Physician Discharge Instructions: [facility] Call Gwen Monaco RN at [phone] for questions or concerns after discharge. Expect a call within 1-2 business days of discharge. Alternate: GERARDO Jennings [phone]. Alternate: GERARDO Byers [phone]. Diet: Full liquid diet for the next 5 days and advance as tolerated. Activity: Ad yossi Followup: NONE,NONE [Primary Care Provider] - 1-2 Weeks Juan Miguel Dickens MD [ASSOCIATE-ACTIVE - CAN ADMIT] - (Within 3 weeks for repeat EGD for more varices banding) Time spent managing pt's care (in minutes): 34
== END 2025-02-22 16:04 | disposition home or self-care (01) | DRG 369 ==
LOC: ER 07:52 → ERHOLD 10:25 → 4TH 11:42
PROVIDERS: ADMIT Hospitalist; ATTEND Internal Medicine
PROC: 0DB68ZX Excision of Stomach, Via Natural or Artificial Opening Endoscopic, Diagnostic (ICD-10-PCS; 2025-02-21)
PROC: 0DB78ZX Excision of Stomach, Pylorus, Via Natural or Artificial Opening Endoscopic, Diagnostic (ICD-10-PCS; 2025-02-21)
PROC: 06L38CZ Occlusion of Esophageal Vein with Extraluminal Device, Via Natural or Artificial Opening Endoscopic (ICD-10-PCS; principal; 2025-02-21 08:45)
DX: I85.01 Esophageal varices with bleeding (principal); D62 Acute posthemorrhagic anemia; K29.71 Gastritis, unspecified, with bleeding; K70.30 Alcoholic cirrhosis of liver without ascites; I10 Essential (primary) hypertension; E11.9 Type 2 diabetes mellitus without complications; Z88.5 Allergy status to narcotic agent; Z88.0 Allergy status to penicillin; Z79.84 Long term (current) use of oral hypoglycemic drugs; Z79.899 Other long term (current) drug therapy; Z79.02 Long term (current) use of antithrombotics/antiplatelets
CPT/HCPCS: 36415; 72191; 74175; 74176; 80048; 80076; 81001; 82947; 83605; 83690; 83735; 83880; 84484; 85025; 85610; 86850; 86900; 86901; 88305; 88312; 93005; 94760; 99285; A4216; J0169; J0696; J2003; J2354; J2405; J2470; J2704; J3475; J7030; J7040; J7050; Q9967